=== PATIENT | male | born 1985 ===

== ENCOUNTER 2020-07-24 21:12 | Emergency (ER) | payer OTHER, SELFPAY ==
[2020-07-24 21:28] VITALS: BP 131/89; PULSE 79; RESP 18; TEMP 35.8; O2SAT 98; BMI 20.9
[2020-07-25 00:40] VITALS: BP 140/97; PULSE 80; RESP 20; O2SAT 98
--- NOTE | 2020-07-25 00:41 | PC.NURSE ---
Pt is CAOx4, reporting redness/swelling/pain to the outside of right nostril. Pt states that it started 1 month ago, pt denies injury/trauma. Pt explains that he went to Urgent Care last week, was prescribed 2 ABX and a topical cream for 1 week. Pt states that it has been 5 days. Pt reports some relief but remains concerned due to pain/swelling. VSS. Awaiting primary MD dagoberto. Continue to monitor.
--- NOTE | 2020-07-25 00:55 | ED.SKABFB ---
HPI - Skin/Abscess/Foreign Bdy General Chief complaint: Skin/Abscess/Foreign Body Stated complaint: nose abscess Source: patient Mode of arrival: ambulatory Limitations: no limitations History of Present Illness HPI narrative: 34-year-old male no significant past history presents with swelling to the right-sided nose. He was treated by urgent care on 07/18 with mupirocin topical ointment, Bactrim DS and Keflex. He has been taking these medications with poor effect, and feels that the swelling and tenderness is getting worse. He feels like the pain is now moving into his sinuses and of his nose. He does not report any fevers, chills, diaphoresis, nausea, vomiting, chest pain or pressure, palpitations, dizziness, lightheadedness, abdominal pain, abdominal distention, dysuria, hematuria, or any other concerning symptoms. Does not notice any did drainage from the site, he has been applying warm compresses and [id number] pain management. MD complaint: abscess/boil Onset (ago): week(s) (2) Tetanus up to date: yes Location: face Severity: moderate Severity scale (1-10): 6 Quality: burning and aching Pain Consistency: constant Exacerbating factors: palpation Context: recent antibiotic Associated symptoms: denies other symptoms Treatments prior to arrival: attempted to drain pus at home and antibiotic Related Data Previous Rx's Medication Instructions Recorded clindamycin HCl 150 mg PO Q8H 7 Days #21 cap 07/25/20 clindamycin HCl 300 mg PO Q8H 7 Days #21 cap 07/25/20 doxycycline monohydrate 100 mg PO BID 10 Days #20 tab 07/25/20 Allergies Allergy/AdvReac Type Severity Reaction Status Date / Time No Known Allergies Allergy Verified 07/24/20 21:27 Review of Systems Review of Systems: Constitutional: No Fever, No Chills ENT/Mouth: Swelling to the right [place], No Ear Pain, No Hoarseness, No sore throat Eyes: No Eye Pain, No Swelling, No Redness, No Foreign Body Cardiovascular: No Chest Pain, No SOB Respiratory: No Cough, No Dyspnea Gastrointestinal: No Nausea, No Vomiting, No Diarrhea, No abdominal Pain Genitourinary: No Dysuria, No Hematuria Musculoskeletal: No joint pain, No Myalgias, No Joint Swelling Skin: Positive redness and tenderness of the right [place], No Skin lacerations, No rash Neuro: No Weakness, No Numbness, No Paresthesias, No Loss of Consciousness, No Dizziness, No Headache Psych: No Anxiety/Panic, No Depression Heme/Lymph: no easy bruising, no Lymphadenopathy Endocrine: No Polyuria, No Polydipsia Yes all other systems are reviewed and are negative [facility] Past Medical History Attestation statement: The following information was validated with the patient. Source: old records reviewed Medical History (Updated 07/25/20 @ 02:42 by Shama Riley NP) No known health problems Social History Social History Advance Directives: No Physical Exam Vital Signs: Vital Signs: Last Vital Signs Temp 96.4 F L 07/24/20 21:28 Pulse 80 07/25/20 00:40 Resp 20 07/25/20 00:40 BP 140/97 H 07/25/20 00:40 Pulse Ox 98 07/25/20 00:40 Body Mass Index 20.9 Appearance: Alert. Oriented X3. No acute distress. Eyes: Pupils equal, round and reactive to light. ENT: Pharynx normal. no septal hematoma, bilateral nares patent Neck: Normal inspection. Neck supple. CVS: Normal heart rate and rhythm. Pulses normal. Respiratory: No respiratory distress. Breath sounds normal. Abdomen: Soft and nontender. Skin: Erythema and tenderness to the right naris, Skin warm and dry. Normal skin color. Normal skin turgor. Extremities: No lower extremity edema. Neuro: No motor deficit. No sensory deficit. Skin: Other: Course Course Course Narrative: 34-year-old male presents with worsening area of cellulitis or abscess on the right naris. He has been on topical antibiotic ointment as well as p.o. Bactrim DS and Keflex. Plan of care is for CBC, Chem 7, and CT scan of facial bones with contrast to rule abscess or facial bone involvement. Patient is afebrile, white count is normal. CT scan is negative for facial bone involvement or abscess. There is nothing drainable at this time, will give IV clindamycin and discharged home doxycycline and clindamycin p.o.. Patient was advised to return in 3 days for wound check. Patient verbalized understanding of and agrees to plan of care to discharge home. MDM - Skin/Abscess/Foreign Bdy Differential Diagnosis Differential diagnosis: Likely abscess of skin or subcutaneous tissue and cellulitis Medical Records Attestation: I reviewed the patient's medical records. Lab Data Attestation: I reviewed the patient's lab results. Result diagrams: 07/25/20 01:04 07/25/20 01:04 Labs: Lab Results 07/25/20 07/25/20 Range/Units 01:04 01:04 WBC 8.0 (4.8-10.8) X10*3/uL RBC 4.81 (4.60-5.80) X10*6/uL Hgb 14.2 (14.0-18.0) g/dl Hct 40.9 L (42-52) % MCV 85.0 (80-98) fL MCH 29.5 (27.0-33.0) pg MCHC 34.7 (31.0-36.0) g/dl RDW 11.9 (11.0-16.0) % Plt Count 323 (160-400) X10*3/uL MPV 8.8 L (9.4-12.4) fL Immature Gran % (Auto) 0.3 (0.0-0.4) % Neut % (Auto) 38.7 L (45-73) % Lymph % (Auto) 47.2 H (20-40) % [place] % (Auto) 10.1 (2-11) % Eos % (Auto) 3.1 (0-4) % Baso % (Auto) 0.6 (0-2) % Lymph # (Auto) 3.8 (1.2-4.9) X10*3/uL [place] # (Auto) 0.8 (0.1-1.2) X10*3/uL Eos # (Auto) 0.3 (0.0-0.4) X10*3/uL Baso # (Auto) 0.1 (0.0-0.2) X10*3/uL Abs Immat Gran (auto) 0.02 (0.00-0.03) X10*3/uL Absolute Neuts (auto) 3.1 (2.0-8.3) X10*3/uL Absolute Nucleated RBC 0.000 (0.0-0.012) X10*3/uL Nucleated RBC % (auto) 0.0 (0.0-0.2) /100WBC Sodium 138 (135-145) mmol/L Potassium 4.6 (3.3-5.1) mmol/L Chloride 103 (96-108) mmol/L Carbon Dioxide 25 (22-29) mmol/L Anion Gap 15 (12-20) BUN 19 H (9-16) mg/dL Creatinine 0.99 (0.5-1.4) mg/dL Estim Creat Clear Calc 102.5 Estimated GFR > 60 Random Glucose 104 (60-115) mg/dL Calcium 9.3 (8.4-10.2) mg/dL Imaging Data CT scan of facial bones with contrast: Attestation: I personally reviewed and interpreted this imaging study as follows: Radiologist's impression: EXAMINATION: CT FACIAL BONES WITH CONTRAST CLINICAL INFORMATION: Right nasal abscess. COMPARISON: None TECHNIQUE: Contiguous helical images of the facial bones were obtained following the administration of IV contrast. 85 mL of Omnipaque 350 were administered without incident. This CT examination was performed using dose optimization techniques as appropriate, variously including the following: *Automated exposure control *Adjustment of mA and/or kV according to patient size (this includes techniques or standardized protocols for targeted exams where dose is matched to indication/reason for exam; i.e. extremities or head) *Use of iterative reconstruction technique DLP: 288 mGy-cm FINDINGS: There is no acute maxillofacial fracture. The pterygoid plates are intact. The zygomatic arches are intact. The lamina papyracea are intact. The orbital rims are intact. The paranasal sinuses are well-aerated. No air-fluid levels are seen. There is skin thickening to the skin about the right nares. There are no drainable fluid collections. The ostiomeatal complexes are clear. The lamina papyracea are intact. The ethmoid roofs are symmetric. The carotid canals are normally covered by bone. No maxillary periapical disease is seen. The mastoid air cells and visualized middle ear cavities are well-aerated. The orbits are normal. The TMJs are unremarkable. The imaged portions of the brain demonstrate no acute abnormality. CT/CT facial bones w con IMPRESSION: Skin thickening about the right nares without demonstrable drainable fluid collections. No acute intracranial process or discrete facial bone fracture. Discharge Plan Discharge Clinical Impression: Cellulitis Qualifiers: Site of cellulitis: face Qualified Code(s): L03.211 - Cellulitis of face Patient Disposition: Home, Self-Care Instructions: Cellulitis (ED) Additional Instructions: You were evaluated for cellulitis on the left nostril. CT scan with contrast does not show bone involvement or a drainable abscess. We are starting you on 2 different antibiotics. Please stop taking Bactrim and Keflex. Take doxycycline and clindamycin as directed. Finish the entire course of these medications. Please return in 3 days for wound check. If you develop fevers, chills, or any other concerning symptoms please return to the emergency department immediately as this may indicate a serious blood infection. Thank you for choosing this emergency department for evaluation. Please follow-up with primary care physician as needed. Return to the emergency department for any new, concerning, or worsening symptoms. Prescriptions: New clindamycin HCl 300 mg capsule 300 mg PO Q8H 7 Days Qty: 21 RF: 0 clindamycin HCl 150 mg capsule 150 mg PO Q8H 7 Days Qty: 21 RF: 0 doxycycline monohydrate 100 mg tablet 100 mg PO BID 10 Days Qty: 20 RF: 0
--- NOTE | 2020-07-25 01:04 | PC.NURSE ---
IV established, labs obtained. Pt aware of plan for CT. Awaiting CT. Call peterson within reach, continue to monitor.
[2020-07-25 01:22] LABS: Basophils Absolute Auto 0.1 X10*3/uL (0.0-0.2); Basophils Percent Auto 0.6 % (0-2); Eosinophils Absolute Auto 0.3 X10*3/uL (0.0-0.4); Eosinophils Percent Auto 3.1 % (0-4); Hematocrit 40.9 % (42-52); Hemoglobin 14.2 g/dl (14.0-18.0); Imm Gran Abs Auto 0.02 X10*3/uL (0.00-0.03); Imm Gran Pct Auto 0.3 % (0.0-0.4); Lymphocytes Absolute Auto 3.8 X10*3/uL (1.2-4.9); Lymphocytes Percent Auto 47.2 % (20-40); MANUAL DIFF FLAG NO; Mean Corpuscular HGB Conc 34.7 g/dl (31.0-36.0); Mean Corpuscular Hemoglobin 29.5 pg (27.0-33.0); Mean Platelet Volume 8.8 fL (9.4-12.4); Monocytes Absolute Auto 0.8 X10*3/uL (0.1-1.2); Monocytes Percent Auto 10.1 % (2-11); Neutrophils Absolute Auto 3.1 X10*3/uL (2.0-8.3); Neutrophils Percent Auto 38.7 % (45-73); Platelet Count 323 X10*3/uL (160-400); Red Blood Count 4.81 X10*6/uL (4.60-5.80); Red Cell Distribution Width 11.9 % (11.0-16.0)
[2020-07-25 01:50] LABS: Anion Gap 15 (12-20); Blood Urea Nitrogen 19 mg/dL (9-16); Calcium 9.3 mg/dL (8.4-10.2); Carbon Dioxide 25 mmol/L (22-29); Chloride 103 mmol/L (96-108); Creatinine Clr Calc Pharmacy 102.5; Estimated Glomerular Filt Rate > 60; Glucose Random 104 mg/dL (60-115); Potassium 4.6 mmol/L (3.3-5.1); Sodium 138 mmol/L (135-145)
--- NOTE | 2020-07-25 02:03 | PC.NURSE ---
Ambulating to [place] with a [place]/steady gait.
--- NOTE | 2020-07-25 02:07 | PC.NURSE ---
Pt returns from CT without incident.
[2020-07-25] MEDS: iohexoL 350 MG/ML 100 ML INFUS..BTL 85 ML IV (02:22)
[2020-07-25] MEDS: Clindamycin Phosphate/D5W 300 MG/50 ML PIGGYBACK 100 MG IV (02:57)
[2020-07-25 03:03] VITALS: BP 121/82; PULSE 75; RESP 16
--- NOTE | 2020-07-25 03:04 | PC.NURSE ---
Medicated per MAR. VSS.
== END 2020-07-25 03:41 | disposition home or self-care (01) ==
PROVIDERS: Nurse Practitioner Family; Emergency Provider Emergency Medicine
DX: L03.211 Cellulitis of face (principal); J34.89 Other specified disorders of nose and nasal sinuses; Z79.899 Other long term (current) drug therapy
CPT/HCPCS: 36415; 70487; 80048; 85025; 96365; 99284; Q9967

== ENCOUNTER 2020-07-28 20:35 | Emergency (ER) | payer OTHER, SELFPAY ==
[2020-07-28 22:26] VITALS: BP 139/70; PULSE 81; RESP 22; TEMP 37.2; O2SAT 100; BMI 23.8
--- NOTE | 2020-07-28 22:33 | ED_ITS ---
HPI - Skin/Abscess/Foreign Bdy General Chief complaint: General Medical Stated complaint: MULTIPLE COMPLAINTS Time Seen by Provider: 07/28/20 22:15 Source: patient Mode of arrival: ambulatory Limitations: no limitations History of Present Illness HPI narrative: 34-year-old male came in with right nostril skin abscess/infection, started about month ago when patient was using a dirty face mask, started with pain and small pimple to the right side of the right nostril, then started to get more tender and bigger and more redness to the right skin nostril, patient was started on 2 courses of 2 different antibiotic 1st course with Bactrim and Keflex, his 2nd course was doxycycline and clindamycin (patient is still taking it) patient had a facial CT on 07/25/2020 which showed the following:Skin thickening about the right nares without demonstrable drainable fluid collections. No acute intracranial process or discrete facial bone fracture. Patient came in because the 2nd course of 2 antibiotic not given him good relief of his symptoms. Related Data Allergies Allergy/AdvReac Type Severity Reaction Status Date / Time No Known Allergies Allergy Unverified 03/07/20 17:08 Review of Systems Review of Systems: All other systems are reviewed and are negative Constitutional: Reports as per HPI and Reports no additional constitutional complaints Eyes: Reports as per HPI and Reports no additional eye complaints Reports system reviewed and no additional complaints, except as documented Cardiovascular: Reports as per HPI and Reports no additional cardiovascular complaints Respiratory: Reports as per HPI and Reports no additional respiratory complaints Gastrointestinal: Reports as per HPI and Reports no additional gastrointestinal complaints Genitourinary: Reports no additional female genitourinary complaints Musculoskeletal: Reports no additional musculoskeletal complaints Skin/Breast: Reports system reviewed and no additional complaints, except as docu Psychiatric: Reports no additional psychiatric complaints Endocrine: Reports no additional endocrine complaints Hematologic/Lymphatic: Reports no additional hematologic/lymphatic complaints Allergic/Immunologic: Reports no additional allergic/immunologic complaints Reports system reviewed and no additional complaints, except as documented and Reports Abnormal speech present [facility] Past Medical History Medical History Patient denies significant medical history Social History Social History Alcohol intake: never Smoking Status: Never smoker Use of substances other than those prescribed or required for medical reasons: No Advance Directives: No Physical Exam Vital Signs: Vital Signs: Last Vital Signs Temp 98.9 F 07/28/20 22:26 Pulse 81 07/28/20 22:26 Resp 22 H 07/28/20 22:26 BP 139/70 07/28/20 22:26 Pulse Ox 100 07/28/20 22:26 Body Mass Index 23.8 Vital signs have been reviewed as normal and appeared to be correct. Blood pressure normal. Heart rate normal. Respiration rate normal. Temperature normal. Oxygen saturation normal. Appearance: Alert. Oriented X3. No acute distress. Head: Normal external exam. Normocephalic. Atraumatic. No Torres signs noted. No raccoon eyes noted Eyes: EOMI. Conjunctiva and sclera normal. Eyelids normal. ENT: TM's Normal. Pharynx normal. Uvula midline. Moist mucous membranes. No trismus noted. No drooling noted. No muffled voice noted. 1 x 1 cm area of redness, hotness, swelling, tender to touch patient is not letting full examination hard to tell if it is fluctuant, at the left nostril Neck: Normal inspection. Neck supple. FROM. No adenopathy. Thyroid Normal. No meningeal signs. No neck mass noted. CVS: Normal heart rate and rhythm. Heart sound normal. No murmurs noted. Pulses normal throughout. Respiratory: No respiratory distress. Painless inspiration. Breath sounds normal. No wheezes/rales/rhonchi noted. Chest nontender. No accessory muscle usage noted or decreased air movement noted. Abdomen: Soft and nontender. Bowel sounds normal in all 4 quadrants. No distention noted. No organomegaly noted. No visible injury noted. Back: No CVA tenderness. Full range of motion noted. Skin: Skin warm and dry. Normal skin color. Normal skin turgor. No rashes/lesions/lacerations noted. Extremities: No lower extremity edema. Extremities exhibit normal range of motion. Extremities nontender. Neuro: Oriented X 3. No motor deficit. No sensory deficit. Reflexes normal. Course Course Course Narrative: Assessment and plan. 34-year-old male for months is been having redness tenderness and swelling of right nostril not responding to antibiotic, status post I and D drainage is consistent with infected sebaceous cyst. Will discharge to finish the current course of antibiotic. And follow-up with a surgeon.. Procedures Abscess I/D Site: other (Left nostril) Local Anesthetic: lidocaine 2% Amount of anesthesia used (mL): 5 Technique: incised with blade (Size 11 blade scalpel made have cm incision, copious amount of cheesy drainage was squeezed out.) Sent for culture/gram staining?: No Irrigation: No Packing used?: none Complications: pain Discharge Plan Discharge Clinical Impression: Sebaceous cyst Patient Disposition: Home, Self-Care Instructions: Cyst (ED) Additional Instructions: Apply ice to the area. Finish the whole course of the current antibiotic. Referrals: Physician,None [Primary Care Provider] - 2 days Lsaha Ramírez MD [Physician] - 2 days
[2020-07-28] MEDS: Lidocaine 4 % Cream KIT 1 APPL TOPICAL (22:36)
[2020-07-28] MEDS: Lidocaine HCl 2 % MPF 5 ML VIAL SUBCUT (23:01)
[2020-07-29] VITALS: PULSE 84; RESP 18
[2020-07-29] MEDS: oxyCODONE HCl Immed Release 5 MG TABLET PO (00:53)
--- NOTE | 2020-07-29 01:47 | PC.NURSE ---
dressing applied to right side of nose no bleeding or drainage at this time. site tender to touch
== END 2020-07-29 02:01 | disposition home or self-care (01) ==
PROVIDERS: Emergency Provider Emergency Medicine
DX: L72.3 Sebaceous cyst (principal)
CPT/HCPCS: 10060; 99284

== ENCOUNTER → 2020-08-06 14:17 | Outpatient (BNVA) | payer OTHER, SELFPAY | PROVIDERS: PCP Internal Medicine; Visit Provider Surgery | DX: J34.0 Abscess, furuncle and carbuncle of nose (principal) | CPT/HCPCS: 99202 ==

== ENCOUNTER 2021-03-20 09:19 | Emergency (ER) | payer OTHER, SELFPAY ==
--- NOTE | ~2021-03-20 | XR_ITS ---
EXAMINATION: XR HAND, RIGHT CLINICAL INFORMATION: Laceration. Rule out foreign body. COMPARISON: None TECHNIQUE: PA, lateral, and oblique views of the right hand. FINDINGS: Bone alignment is normal. No fracture or dislocation is seen. The joint spaces are normal. Soft tissues are normal. No soft tissue foreign body seen. XR/XR hand RT 2V IMPRESSION: No soft tissue foreign body seen.
[2021-03-20 10:07] VITALS: BP 122/81; PULSE 90; RESP 6; TEMP 36.8; O2SAT 100; BMI 20.3
--- NOTE | 2021-03-20 10:19 | ED.WOUNDLAC ---
HPI - Wound/Laceration General Chief Complaint: Wound/Laceration Stated Complaint: laceration rt hand Time Seen by Provider: 03/20/21 10:03 Source: patient Mode of arrival: ambulatory Limitations: no limitations History of Present Illness HPI narrative: 35-year-old male here with complaints of laceration to the right hand. Patient tells me he was taking out the trash in a piece of glass punctured his right hand. There was some bleeding on site which is controlled now. Tetanus status unknown Related Data Previous Rx's Medication Instructions Recorded clindamycin HCl 150 mg capsule 150 mg PO Q8H 7 Days #21 cap 07/25/20 clindamycin HCl 300 mg capsule 300 mg PO Q8H 7 Days #21 cap 07/25/20 doxycycline monohydrate 100 mg 100 mg PO BID 10 Days #20 tab 07/25/20 tablet Allergies Allergy/AdvReac Type Severity Reaction Status Date / Time No Known Allergies Allergy Verified 08/06/20 14:26 Review of Systems Review of Systems: Yes all other systems are reviewed and are negative Constitutional: Constitutional: Reports no additional constitutional complaints, Denies body ache(s), Denies chills, Denies fever(s), Denies headache(s) and Denies weakness Eyes: Eyes: Reports no additional eye complaints and Denies change in vision ENT: Reports system reviewed and no additional complaints, except as documented, Denies dizziness, Denies headache(s), Denies nasal congestion, Denies nasal discharge and Denies neck pain Cardiovascular: Cardiovascular: Reports no additional cardiovascular complaints, Denies chest pain, Denies leg edema and Denies dyspnea Respiratory: Respiratory: Reports no additional respiratory complaints, Denies cough and Denies dyspnea Gastrointestinal: Gastrointestinal: Reports no additional gastrointestinal complaints, Denies abdominal pain, Denies diarrhea, Denies nausea and Denies vomiting Genitourinary: Genitourinary: Denies urinary incontinence Musculoskeletal: Musculoskeletal: Reports no additional musculoskeletal complaints, Denies back pain, Denies arthralgias, Denies joint swelling, Denies neck pain, Denies numbness and Denies tingling Integumentary/Breasts: Skin/Breast: Reports system reviewed and no additional complaints, except as docu and Denies rash Comments: Laceration Neurologic: Reports system reviewed and no additional complaints, except as documented, Denies Abnormal speech present, Denies dizziness, Denies headache(s), Denies numbness, Denies tingling and Denies weakness PMFSH Past Medical History Attestation statement: The following information was validated with the patient. Source: old records reviewed and nursing notes reviewed Medical History Abscess of nose No known health problems Patient denies significant medical history Social History Social History Alcohol intake: current Advance Directives: No Advance Directives Information Provided: No Physical Exam Vital Signs: Vital Signs: Last Vital Signs Temp 98.2 F 03/20/21 10:07 Pulse 90 03/20/21 10:07 Resp 6 L 03/20/21 10:07 BP 122/81 03/20/21 10:07 Pulse Ox 100 03/20/21 10:07 Body Mass Index 20.3 Const: General: cooperative, healthy appearing, comfortable and no acute distress Orientation/consciousness: patient oriented x3 Limitations: no limitations HENMT: Head: Yes normal to inspection Ears: hearing grossly normal bilaterally General nose exam: Normal external nose present Face and sinus: Yes normal facial exam Mouth: Normal oral and palatal mucosa present Throat: Yes posterior oropharynx normal Eyes: General: appearance normal, both eyes and all related structures Pupils: Equal, round and reactive pupils present Neck: Neck: Yes normal visual inspection Chest: Chest palpation & inspection: normal inspection of the chest Resp: Effort & Inspection: normal respiratory effort Auscultation: clear to auscultation bilaterally Cardio: Rate: regular rate Rhythm: regular rhythm Peripheral pulses: Peripheral pulses 2+ throughout GI: Inspection: Yes normal to inspection Palpation (GI): Soft to palpation and nontender Auscultation: normal bowel sounds Back/Spine/Pelvis: Thoracic/Lumbar Spine: thoracic and lumbar spine normal to inspection Skin: General skin exam: no rashes or lesions noted Neuro: General: patient oriented x3, no focal motor deficits and normal sensation to monofilament Cranial nerves: Yes Equal, round and reactive pupils present Cognition (Neuro): normal cognition Speech: No Abnormal speech present Gait exam (Neuro): Normal gait present Motor exam (neuro): 5/5 motor strength present throughout Extrem: Other: Over the right thenar there is a 1 centimetres superficial laceration. Bleeding is controlled. Able to extend and flex the thumb with no difficulty. There is some pain but patient is able. General: Yes normal to inspection Course Course Course Narrative: Superficial laceration to the right thumb. Will check x-ray to rule out foreign body and update tetanus status 1100-flexor and extensor tendon intact. The wound was cleaned with normal saline and Betadine solution. Steri-Strips were applied with a nonstick and a wrap. X-ray shows no foreign body. Reviewed worrisome signs and symptoms of when to return to the emergency department. Comfortable discharge home. MDM - Wound/Laceration Medical Records Attestation: I reviewed the patient's medical records. Lab Data Attestation: I reviewed the patient's lab results. Imaging Data hand xray: Attestation: I personally reviewed and interpreted this imaging study as follows: Radiologist's impression: EXAMINATION: XR HAND, RIGHT CLINICAL INFORMATION: Laceration. Rule out foreign body.? COMPARISON: None? TECHNIQUE: PA, lateral, and oblique views of the right hand. FINDINGS: Bone alignment is normal. No fracture or dislocation is seen. The joint spaces are normal. Soft tissues are normal. No soft tissue foreign body seen.? XR/XR hand RT 2V IMPRESSION: No soft tissue foreign body seen. Discharge Plan Discharge Clinical Impression: Laceration Patient Disposition: Home, Self-Care Instructions: Laceration (ED) Additional Instructions: Remove the outer dressing in 24 hrs. Keep the steri strips in place for 3 days then remove. After this apply a triple antibiotic ointment Return for fever, drainage, odor Prescriptions: No Action clindamycin HCl 300 mg capsule 300 mg PO Q8H 7 Days Qty: 21 RF: 0 clindamycin HCl 150 mg capsule 150 mg PO Q8H 7 Days Qty: 21 RF: 0 doxycycline monohydrate 100 mg tablet 100 mg PO BID 10 Days Qty: 20 RF: 0 Referrals: Physician,None [Primary Care Provider] - 2 days Interventions: ED Discharge Assessment Last Done: 03/20/21 11:02 Discharge Date/Time: 03/20/21 11:03
[2021-03-20] MEDS: Diphth,Pertus(ACell),Tet Adult 0.5 ML SYRINGE IM (10:52)
== END 2021-03-20 11:03 | disposition home or self-care (01) ==
PROVIDERS: Emergency Provider Emergency Medicine Emergency Medical Services
DX: S61.411A Laceration without foreign body of right hand, initial encounter (principal); M79.641 Pain in right hand; W25.XXXA Contact with sharp glass, initial encounter; Y93.9 Activity, unspecified; Y92.007 Garden or yard of unspecified non-institutional (private) residence as the place of occurrence of the external cause; Y99.9 Unspecified external cause status; Z79.899 Other long term (current) drug therapy
CPT/HCPCS: 73120; 90471; 90715; 99283; 99284

== ENCOUNTER 2021-07-28 14:07 | Emergency (ER) | payer OTHER, SELFPAY ==
[2021-07-28 14:32] VITALS: BP 128/74; PULSE 85; RESP 16; TEMP 36.9; O2SAT 100; BMI 20.3
--- NOTE | 2021-07-28 15:37 | ED_ITS ---
HPI - Back Pain/Injury General Chief Complaint: Back Pain/Injury Stated Complaint: back pain - work injury Time Seen by Provider: 07/28/21 15:27 Source: patient Mode of arrival: ambulatory Limitations: no limitations History of Present Illness HPI Narrative: 35-year-old male presents to the ED for low back pain on movement. Patient states a couple days ago he was lifting heavy objects from his truck. 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 Patient denies any blunt trauma to the back, fall ground, abdominal pain, nausea, vomiting, dysuria, hematuria, flank pain, fever, or chills. Patient denies any urinary/bowel incontinence. Related Data Previous Rx's Medication Instructions Recorded clindamycin HCl 150 mg capsule 150 mg PO Q8H 7 Days #21 cap 07/25/20 clindamycin HCl 300 mg capsule 300 mg PO Q8H 7 Days #21 cap 07/25/20 doxycycline monohydrate 100 mg 100 mg PO BID 10 Days #20 tab 07/25/20 tablet cyclobenzaprine 10 mg tablet 10 mg PO TID PRN #21 tab 07/28/21 naproxen 500 mg tablet 500 mg PO BID PRN 10 Days #20 tab 07/28/21 prednisone 20 mg tablet 60 mg PO DAILY 5 Days #15 tab 07/28/21 Allergies Allergy/AdvReac Type Severity Reaction Status Date / Time No Known Allergies Allergy Verified 07/28/21 14:31 Review of Systems Review of Systems: Back pain Yes all other systems are reviewed and are negative PMFSH Past Medical History Medical History Abscess of nose No known health problems Patient denies significant medical history Social History Social History Alcohol intake: current Advance Directives: No Advance Directives Information Provided: Yes Physical Exam Vital Signs: Vital Signs: Last Vital Signs Temp 98.5 F 07/28/21 14:32 Pulse 85 07/28/21 14:32 Resp 16 07/28/21 14:32 BP 128/74 07/28/21 14:32 Pulse Ox 100 07/28/21 14:32 BMI result Body Mass Index 20.3 Const: General: cooperative, healthy appearing, comfortable, no acute distress, well developed, alert, awake and Physically active Orientation/consciousness: patient oriented x3 HENMT: Head: Yes normal to inspection, Yes No palpable skull fracture present, Yes normocephalic, Yes atraumatic and No abrasion Eyes: General: appearance normal, both eyes and all related structures Neck: Neck: Yes normal visual inspection, Yes full ROM, Yes no lymphadenopathy, Yes no meningeal signs, Yes trachea midline, Yes supple, No anterior neck swelling and No tender Chest: Chest palpation & inspection: normal inspection of the chest and normal palpation of entire chest wall Resp: Effort & Inspection: normal respiratory effort and able to speak in complete sentences Auscultation: clear to auscultation bilaterally Cardio: Jugular venous distension: no JVD Heart sounds: S1 normal heart sound present and S2 normal heart sound present GI: Inspection: Yes normal to inspection and No abdominal wall ecchymosis Palpation (GI): Soft to palpation, not firm, nontender, no guarding and not rigid : General: No CVA tenderness and Yes no CVA tenderness Back/Spine/Pelvis: Other: Back pain on range of motion. Back: no CVA tenderness, No CVA tenderness and back tenderness (Right paraspinous is tenderness. negative for spine tenderness on palpation) Skin: General skin exam: no rashes or lesions noted and elasticity normal Neuro: General: patient oriented x3, gait normal, no meningeal signs and CN's II-XI intact bilaterally Cranial nerves: Yes CN's II-XII intact bilaterally Extrem: General: Yes normal to inspection and Yes full ROM Psych: Appearance: grossly normal, well kempt and not disheveled Course Course Course Narrative: Back pain Reevaluation(s) Reevaluation #1: Patient refused imaging. Symptoms most likely muscular. Patient informed his symptoms worsen she will follow up with primary care provider for imaging of the spine. Not Suspecting kidney stones, cauda equina, or epidural abscess. Patient will be discharged with pain meds and muscle relaxers Time: 15:44 MDM - Back Pain/Injury MDM Narrative Medical decision making narrative: Muscular back pain. Back strain Discharge Plan Discharge Clinical Impression: Strain of lumbar region Patient Disposition: Home, Self-Care Instructions: Low Back Strain (ED), Acute Low Back Pain (ED) Additional Instructions: Return to the ED immediately for any worsening back pain, paralysis/tingling/numbness of lower extremity, inability to walk, flank pain, fever, chills, nausea, vomiting, hematuria, abdominal pain, or any other concerning symptoms. Prescriptions: New naproxen 500 mg tablet 500 mg PO BID PRN (Reason: pain) 10 Days Qty: 20 0RF prednisone 20 mg tablet 60 mg PO DAILY 5 Days Qty: 15 0RF cyclobenzaprine 10 mg tablet 10 mg PO TID PRN (Reason: muscle spasm) Qty: 21 0RF Rx Instructions: Side effect of drowsiness. Do Not take at work or while driving. No Action clindamycin HCl 300 mg capsule 300 mg PO Q8H 7 Days Qty: 21 0RF Rx Instructions: Clindamycin 450 mg p.o. q.8 hours for 7 days clindamycin HCl 150 mg capsule 150 mg PO Q8H 7 Days Qty: 21 0RF Rx Instructions: Clindamycin 450 mg p.o. 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
== END 2021-07-28 16:15 | disposition home or self-care (01) ==
LOC: HO.ED 15:57
PROVIDERS: Emergency Provider Emergency Medicine; PCP Internal Medicine
DX: S39.012A Strain of muscle, fascia and tendon of lower back, initial encounter (principal); X50.0XXA Overexertion from strenuous movement or load, initial encounter; Y93.89 Activity, other specified; Y92.812 Truck as the place of occurrence of the external cause; Y99.0 Civilian activity done for income or pay
CPT/HCPCS: 99283

== ENCOUNTER 2022-11-05 09:23 | Emergency (ER) | payer OTHER, SELFPAY ==
[2022-11-05 09:27] VITALS: PULSE 82; RESP 18; TEMP 36.9; O2SAT 99; BMI 32.0
--- NOTE | 2022-11-05 10:17 | ED.GENADULT ---
HPI - General Adult General Chief complaint: Eye Problems Stated complaint: fb in eyes work related Time Seen by Provider: 11/05/22 09:55 Related Data Previous Rx's Medication Instructions Recorded clindamycin HCl 150 mg capsule 150 mg PO Q8H 7 days #21 caps 07/25/20 clindamycin HCl 300 mg capsule 300 mg PO Q8H 7 days #21 caps 07/25/20 doxycycline monohydrate 100 mg 100 mg PO BID 10 days #20 tabs 07/25/20 tablet cyclobenzaprine 10 mg tablet 10 mg PO TID PRN muscle spasm #21 07/28/21 tabs naproxen 500 mg tablet 500 mg PO BID PRN pain 10 days #20 07/28/21 tabs prednisone 20 mg tablet 60 mg (3 x 20 mg) PO DAILY 5 days 07/28/21 #15 tabs erythromycin 5 mg/gram (0.5 %) eye 1 appl ophthalmic-Left TID 10 days 11/05/22 ointment #3.5 grams Allergies Allergy/AdvReac Type Severity Reaction Status Date / Time No Known Allergies Allergy Verified 07/28/21 14:31 Review of Systems Constitutional: Constitutional: Reports no additional constitutional complaints Eyes: Eyes: Reports blurry vision, Reports irritation and Reports eye pain ( Left eye) ENT: Reports system reviewed and no additional complaints, except as documented Cardiovascular: Cardiovascular: Reports no additional cardiovascular complaints Respiratory: Respiratory: Reports no additional respiratory complaints Gastrointestinal: Gastrointestinal: Reports no additional gastrointestinal complaints Genitourinary: Genitourinary: Reports no additional male genitourinary complaints Musculoskeletal: Musculoskeletal: Reports no additional musculoskeletal complaints Psychiatric: Psychiatric: Reports no additional psychiatric complaints [facility] Past Medical History Medical History Abscess of nose No known health problems Patient denies significant medical history Social History Social History Alcohol intake: current Advance Directives: No Advance Directives Information Provided: No Physical Exam ED Vital Signs: Vital Signs - 24 hr 11/05/22 09:27 Temperature 98.5 F Pulse Rate 82 Respiratory Rate 18 Pulse Oximetry 99 Oxygen Delivery Method Room Air BMI result Body Mass Index 32.0 Const General: cooperative, healthy appearing, well developed, alert and awake [facility] Head: Yes normal to inspection, Yes No palpable skull fracture present, Yes normocephalic and Yes atraumatic Ears: hearing grossly normal bilaterally, external ears normal and TM's normal bilaterally General nose exam: Normal external nose present Face and sinus: Yes normal facial exam Eyes Eyelids: Yes eyelid abnormality ( Left eyelid is swollen) Conjunctivae: conjunctival abnormal ( left conjunctiva red) Corneas: fluorescein used ( blood denies so the common to) Pupils: Equal, round and reactive pupils present Direct Ophthalmoscopy: normal light reflex Neuro Cranial nerves: Yes Equal, round and reactive pupils present Medications Administered Discontinued Medications Generic Name Dose Route Start Last Admin Trade Name Yolis PRN Reason Stop Dose Admin Erythromycin 1 cm 11/05/22 11:14 11/05/22 11:34 Erythromycin Base 0.5% Oph Oin 1 Gm Tube EYE-LEFT 11/05/22 11:15 1 cm ONCE ONE Administration Fluorescein Sodium 1 strip 11/05/22 10:23 11/05/22 11:13 Fluorescein Sodium Strip EYE-LEFT 11/05/22 10:24 1 strip ONCE ONE Administration Tetracaine HCl 1 drop 11/05/22 10:23 11/05/22 11:13 Tetracaine Hcl/Pf 0.5% Oph Demetra 4 Ml Drops EYE-LEFT 11/05/22 10:24 1 drop ONCE ONE Administration Medical Decision Making Medical Decision Making MDM Narrative: patient is here today for complaining left eye pain. 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 Patient has been like this for the last few days. 2 nights ago patient reports that he felt like he had something in his eye rubbed his eye and felt pain. Patient went to work yesterday, however he continued to have left eye pain and swelling. Patient went to [facility] last night during the night and was told that he will not be able to see for 9 hours or so. Patient is here today. Unable to keep his eye open. Left eyelid swelling and redness. Sensitive to light. Will put tetracaine eyedrops and Fluorescein strip used. Wood's lamp used and patient does have a 2 mm corneal abrasion. No foreign body seen. Patient will be discharged home to follow-up with his geriatric physician. First dose of erythromycin will be giving in the ER. Discharge Plan Discharge Clinical Impression: Corneal abrasion Patient Disposition: Home, Self-Care Instructions: Corneal Abrasion (ED), Photophobia (ED) Additional Instructions: you were seen here today after sustaining injury to your left eye. You do have a small corneal abrasion. No foreign body seen. Continue to use erythromycins ointment 3 times a day for the next [address] Velasquez's office tomorrow for follow-up appointment. Please make sure he will return to emergency department if you continue to have eye pain, discharge, increased swelling or redness , fever or chills. Make sure that you keep your eyes cean. Please do not rub your eyes Prescriptions: New erythromycin 5 mg/gram (0.5 %) ointment 1 appl ophthalmic-Left TID 10 Days Qty: 3.5 0RF No Action clindamycin HCl 300 mg capsule 300 mg PO Q8H 7 Days Qty: 21 0RF Rx Instructions: Clindamycin 450 mg p.o. q.8 hours for 7 days clindamycin HCl 150 mg capsule 150 mg PO Q8H 7 Days Qty: 21 0RF Rx Instructions: Clindamycin 450 mg p.o. q.8 hours for 7 days doxycycline monohydrate 100 mg tablet 100 mg PO BID 10 Days Qty: 20 0RF naproxen 500 mg tablet 500 mg PO BID PRN (Reason: pain) 10 Days Qty: 20 0RF prednisone 20 mg tablet 60 mg PO DAILY 5 Days Qty: 15 0RF cyclobenzaprine 10 mg tablet 10 mg PO TID PRN (Reason: muscle spasm) Qty: 21 0RF Rx Instructions: Side effect of drowsiness. Do Not take at work or while driving. Referrals: Praneeth Velasquez [Physician] - Stand Alone Forms: Work/School Release Interventions: ED Discharge Assessment Last Done: 11/05/22 11:39 Discharge Date/Time: 11/05/22 11:41
[2022-11-05] MEDS: Fluorescein Sodium STRIP 1 STRIP EYE-LEFT (11:13)
[2022-11-05] MEDS: Tetracaine HCl/PF 0.5% Oph Sol 4 ML DROPS 1 DROP EYE-LEFT (11:13)
--- NOTE | 2022-11-05 11:14 | MHC.EDTECH ---
Patient did visual test unable to do Left eye, due to not be able to open . Right eye was 20/25
[2022-11-05] MEDS: Erythromycin Base 0.5% Oph Oin 1 GM TUBE 1 CM EYE-LEFT (11:34)
== END 2022-11-05 11:41 | disposition home or self-care (01) ==
PROVIDERS: Emergency Provider Student in an Organized Health Care Education/Training Program
DX: S05.02XA Injury of conjunctiva and corneal abrasion without foreign body, left eye, initial encounter (principal); X58.XXXA Exposure to other specified factors, initial encounter; H57.12 Ocular pain, left eye; Y93.9 Activity, unspecified; Y92.9 Unspecified place or not applicable; Y99.9 Unspecified external cause status
CPT/HCPCS: 99282; 99283

== ENCOUNTER 2022-11-14 12:17 | Emergency (ER) | payer OTHER, SELFPAY ==
[2022-11-14 12:35] VITALS: PULSE 66; RESP 18; TEMP 36.6; O2SAT 98; BMI 26.5
--- NOTE | 2022-11-14 12:48 | ED_ITS ---
HPI - Medical Clearance General Chief complaint: Medical Clearance Stated complaint: medical clearance Time Seen by Provider: 11/14/22 12:51 Source: patient Mode of arrival: ambulatory Limitations: no limitations History of Present Illness HPI Narrative: Patient is a 37 year old assigned male at with no reported history presenting to the emergency department today requesting a note to go back to work. Patient states that he was recently seen here and needs a note saying he can go back to work tomorrow. Patient denies any dizziness, lightheadedness, abdominal pain, nausea, vomiting, fever, chills, blurry vision, double vision, loss of vision, chest pain, difficulty breathing, shortness of breath, back pain, night sweats, pain with urination, increased urinary frequency, increased urinary urgency, blood in his urine or stool, syncope or a near syncopal episode, recent trauma or falls, bowel incontinence, bladder incontinence, bowel retention, bladder retention, or any other complaints at this time. Associated Symptoms: denies other symptoms Treatments Prior to Arrival: none Related Information Previous Rx's Medication Instructions Recorded clindamycin HCl 150 mg capsule 150 mg PO Q8H 7 days #21 caps 07/25/20 clindamycin HCl 300 mg capsule 300 mg PO Q8H 7 days #21 caps 07/25/20 doxycycline monohydrate 100 mg 100 mg PO BID 10 days #20 tabs 07/25/20 tablet cyclobenzaprine 10 mg tablet 10 mg PO TID PRN muscle spasm #21 07/28/21 tabs naproxen 500 mg tablet 500 mg PO BID PRN pain 10 days #20 07/28/21 tabs prednisone 20 mg tablet 60 mg PO DAILY 5 days #15 tabs 07/28/21 erythromycin 5 mg/gram (0.5 %) eye 1 appl ophthalmic-Left TID 10 days 11/05/22 ointment #3.5 grams Allergies Allergy/AdvReac Type Severity Reaction Status Date / Time No Known Allergies Allergy Verified 07/28/21 14:31 Review of Systems Constitutional: Constitutional: Reports no additional constitutional complaints, Denies chills, Denies fever(s) and Denies night sweats Eyes: Eyes: Reports no additional eye complaints, Denies blurry vision, Denies change in vision, Denies diplopia, Denies eye discharge, Denies loss of vision and Denies eye pain ENT: Denies dizziness Cardiovascular: Cardiovascular: Reports no additional cardiovascular complaints, Denies chest pain, Denies lightheadedness, Denies Loss of Consciousness and Denies dyspnea Respiratory: Respiratory: Reports no additional respiratory complaints and Denies dyspnea Gastrointestinal: Gastrointestinal: Reports no additional gastrointestinal complaints, Denies abdominal pain, Denies melena, Denies hematochezia, Denies change in bowel habits and Denies change in stool character Genitourinary: Genitourinary: Reports no additional male genitourinary complaints, Denies hematuria, Denies oliguria, Denies difficulty urinating, Denies dysuria, Denies urinary frequency, Denies urinary hesitancy, Denies urinary incontinence and Denies urinary urgency Musculoskeletal: Musculoskeletal: Reports no additional musculoskeletal complaints, Denies numbness and Denies tingling Neurologic: Denies dizziness, Denies loss of vision, Denies numbness and Denies tingling Psychiatric: Psychiatric: Reports no additional psychiatric complaints Endocrine: Endocrine: Reports no additional endocrine complaints Hematologic/Lymphatic: Hematologic/Lymphatic: Reports no additional hematologic/lymphatic complaints Allergic/Immunologic: Allergic/Immunologic: Reports no additional allergic/immunologic complaints [facility] Past Medical History Attestation statement: The following information was validated with the patient. Source: old records reviewed and nursing notes reviewed Medical History Abscess of nose No known health problems Patient denies significant medical history Social History Social History Alcohol intake: current Advance Directives: No Advance Directives Information Provided: No Physical Exam Vital Signs: Vital Signs: Last Vital Signs Temp 97.8 F 11/14/22 12:35 Pulse 66 11/14/22 12:35 Resp 18 11/14/22 12:35 Pulse Ox 98 11/14/22 12:35 O2 Del Method Room Air 11/14/22 12:35 BMI result Body Mass Index 26.5 Const: General: cooperative, no acute distress, alert and awake Nutritional Appearance: well nourished Orientation/consciousness: patient oriented x3 Limitations: no limitations HEENT: Head: Yes normal to inspection and Yes atraumatic Ears: hearing grossly normal bilaterally and external ears normal General nose exam: Normal external nose present, no nasal discharge noted and no epistaxis Face and sinus: Yes normal facial exam, No abrasion and No laceration Mouth: Normal oral and palatal mucosa present, no drooling and no muffled voice Eyes: General: appearance normal, both eyes and all related structures Periorbital: periorbital findings normal Eyelids: Yes eyelids normal Conjunctivae: conjunctivae normal Pupils: Equal, round and reactive pupils pr esent EOM: EOMs intact bilaterally Neck: Neck: Yes normal visual inspection, Yes full ROM and Yes no lymphadenopathy Chest: Chest palpation & inspection: normal inspection of the chest Resp: Effort & Inspection: normal respiratory effort and able to speak in complete sentences Auscultation: clear to auscultation bilaterally Cardio: Rate: regular rate Rhythm: regular rhythm GI: Inspection: Yes normal to inspection Neuro: General: patient oriented x3 and moves all extremities Cranial nerves: Yes Equal, round and reactive pupils present Cognition (Neuro): normal cognition Motor exam (neuro): 5/5 motor strength present throughout Sensory Exam: Normal double simultaneous stimulation for sensation Coordination: [id number] test normal Extrem: General: Yes normal to inspection, Yes full ROM and Yes capillary refill normal Psych: Appearance: grossly normal Mental Status: mental status grossly normal Affect: normal affect Attitude: cooperative Thought process: Normal thought process present Thought content: Normal thought content present Insight: Good insight present (Psych) Medical Decision Making Medical Decision Making MDM Narrative: Patient is a 37 year old assigned male at with no reported medical history presenting to the emergency department today requesting a work note to go back to work tomorrow. Patient's physical exam was unremarkable. I explained my physical exam findings to the patient. I answered all questions asked by the patient. I stressed the importance of the patient taking his medication as prescribed. I stressed the importance of the patient following up with his primary care provider. I stressed the importance of the patient returning to the emergency department immediately if he were to develop any dizziness, shortness of breath, difficulty breathing, chest pain, blurry vision, loss of vision, nausea, vomiting, abdominal pain, fever, chills, back pain, or any other complaints. Patient verbalized agreement and understanding with this treatment plan and discharge. Differential Diagnosis Differential Diagnoses: The differential diagnosis associated with the presentation includes medical clearance Discharge Plan Discharge Clinical Impression: Normal exam Patient Disposition: Home, Self-Care Instructions: Normal Exam (ED) Additional Instructions: Follow up with your primary care provider. Return to the emergency department immediately if you develop any dizziness, shortness of breath, difficulty breathing, chest pain, blurry vision, loss of vision, nausea, vomiting, abdominal pain, fever, chills, back pain, or any other complaints. Prescriptions: No Action clindamycin HCl 300 mg capsule 300 mg PO Q8H 7 Days Qty: 21 0RF Rx Instructions: Clindamycin 450 mg p.o. q.8 hours for 7 days clindamycin HCl 150 mg capsule 150 mg PO Q8H 7 Days Qty: 21 0RF Rx Instructions: Clindamycin 450 mg p.o. q.8 hours for 7 days doxycycline monohydrate 100 mg tablet 100 mg PO BID 10 Days Qty: 20 0RF naproxen 500 mg tablet 500 mg PO BID PRN (Reason: pain) 10 Days Qty: 20 0RF prednisone 20 mg tablet 60 mg PO DAILY 5 Days Qty: 15 0RF cyclobenzaprine 10 mg tablet 10 mg PO TID PRN (Reason: muscle spasm) Qty: 21 0RF Rx Instructions: Side effect of drowsiness. Do Not take at work or while driving. erythromycin 5 mg/gram (0.5 %) ointment 1 appl ophthalmic-Left TID 10 Days Qty: 3.5 0RF Referrals: [facility] Family [facility] [Provider Group] (Call to establish and follow up with a primary care provider. If you already have a primary care provider, please follow up with them.) [facility] [Provider Group] (Call to establish and follow up with a primary care provider. If you already have a primary care provider, please follow up with them.) [facility] [Provider Group] (Call to establish and follow up with a primary care provider. If you already have a primary care provider, please follow up with them.) Stand Alone Forms: Work/School Release Interventions: ED Discharge Assessment Last Done: 11/14/22 12:57 Discharge Date/Time: 11/14/22 12:58 Print Language: Rwandan
== END 2022-11-14 12:58 | disposition home or self-care (01) ==
PROVIDERS: Emergency Provider Internal Medicine
DX: Z02.79 Encounter for issue of other medical certificate (principal)
CPT/HCPCS: 99282

== ENCOUNTER 2023-12-09 20:31 | Emergency (ER) | payer OTHER, SELFPAY ==
[2023-12-09 20:40] VITALS: BP 143/81; PULSE 73; RESP 18; TEMP 36.9; O2SAT 98; BMI 21.7
--- NOTE | 2023-12-09 20:40 | ED_ITS ---
HPI - Ear Problem General Chief complaint: Ear Problems Stated complaint: object stuck in ear Time Seen by Provider: 12/09/23 22:27 Source: patient Mode of arrival: ambulatory Limitations: no limitations History of Present Illness HPI Narrative: Patient is a 38-year-old male who presents emergency department for evaluation of right ear pain for 1 week. He felt as though his ear was clogged, but was still able to hear. He denies any head trauma or known injury. He denies any active drainage from the ear. He denies any itching sensation. Denies pain to the external ear. She has not frequent swimmer. He reports that he went to urgent care prior to arrival, they attempted irrigation of the ear, but he states ?it pushed the wax and further? and then he had decreased hearing to the left ear afterwards. He denies any additional URI symptoms. Related Data Previous Rx's ?Medication ?Instructions ?Recorded clindamycin HCl 150 mg capsule 150 mg PO Q8H 7 days #21 caps 07/25/20 clindamycin HCl 300 mg capsule 300 mg PO Q8H 7 days #21 caps 07/25/20 doxycycline monohydrate 100 mg 100 mg PO BID 10 days #20 tabs 07/25/20 tablet cyclobenzaprine 10 mg tablet 10 mg PO TID PRN muscle spasm #21 07/28/21 tabs naproxen 500 mg tablet 500 mg PO BID PRN pain 10 days #20 07/28/21 tabs prednisone 20 mg tablet 60 mg (3 x 20 mg) PO DAILY 5 days 07/28/21 #15 tabs erythromycin 5 mg/gram (0.5 %) eye 1 appl ophthalmic-Left TID 10 days 11/05/22 ointment #3.5 grams acetic acid 2 % ear solution 3 drp otic (ear) right Q6H 7 days 12/09/23 #15 mL Allergies Allergy/AdvReac Type Severity Reaction Status Date / Time No Known Allergies Allergy Verified 12/09/23 20:40 Review of Systems Review of Systems: Yes all other systems are reviewed and are negative PMFSH Past Medical History Attestation statement: The following information was validated with the patient. Source: old records reviewed Medical History Abscess of nose Patient denies significant medical history No known health problems Social History Social History Alcohol intake: current Smoked in Last 30 Days: No Use of substances other than those prescribed or required for medical reasons: No Advance Directives: No Advance Directives Information Provided: No Do you have a plan to hurt others: No Plan Physical Exam Vital Signs: Vital Signs: Last Vital Signs Temp 97.9 F 12/10/23 00:21 Pulse 78 12/10/23 00:21 Resp 16 12/10/23 00:21 BP 126/74 12/10/23 00:21 Pulse Ox 99 12/10/23 00:21 O2 Del Method Room Air 12/10/23 00:21 BMI result Body Mass Index 21.7 Appearance: Alert.?Oriented to person, place and time. No acute distress.?Normal affect. Eyes: Pupils equal, round and reactive to light.? ENT: Pharynx normal.??Right ear canal with cerumen impaction unable to visualize TM, cerumen present to the left ear canal, able to visualize TM, no evidence of AOM Neck: Normal inspection.? Neck supple.??No cervical adenopathy CVS: Heart sounds normal. Normal heart rate and rhythm.? Pulses normal.?? Respiratory: No respiratory distress.? Lung sounds clear to auscultation bilaterally??? Skin: Skin warm and dry.? Normal skin color.? Neuro: Moves all extremities spontaneously. Sensation intact bilaterally. Ambulates with normal steady gait. Course Course Course Narrative: This is a Rapid Medical Exam performed in triage by Martina Dick PA-C. Full HPI, ROS and PE to be performed by primary ED provider. 38 year-old M w/ no sig PMHx presenting to the ED c/o R ear pain x 1 wk. Admits to clogged right ear. Was seen at [facility] and states they tried irrigating ear, however feels like they made it worse PE: impacted cerumen to R ear, unable to see TM. cerumen in L ear w/o infected TM Plan: Ear irrigation Medications Administered Discontinued Medications Generic Name Dose Route Start Last Admin Trade Name Freq PRN Reason Stop Dose Admin Docusate Sodium 100 mg 12/09/23 22:27 12/09/23 22:31 Docusate Sodium 100 Mg/10 Ml Liquid PO 12/09/23 22:28 100 mg ONCE ONE Administration Procedures Ear Wax Removal Right Ear: Cerumenolytic Used: Colace Results: Re-examined: some cerumen remains and removal reattempted Ear Canal Exam: atraumatic Patient Tolerated Procedure: other (See course narrative) Complications: no problems Technique: ear canal irrigated and ear canal curetted Medical Decision Making Medical Decision Making MDM Narrative: Patient is a 38-year-old male who presents emergency department for evaluation of right ear pain and decreased hearing, and examination has cerumen impaction of the right ear canal. Despite attempt for irrigation at urgent care prior to arrival, his symptoms persist and impaction was unable to be resolved. Discussed plan of care with patient, agreeable to liquid Colace instilled into the ear as a means as cerumenolytic, will then attempt manual removal with curette and/ or irrigation. Discussed with patient or may be a component of mild otitis externa was well. Attempted removal of cerumen with curette, patient is very anxious surrounding the procedure, frequently pulling his head away. When asked whether this is provoking pain he states no but he is very anxious about it. He did allow me to attempt removal few times, ultimately was unable to alleviate impaction. I attempted irrigation warm water as well and only able to remove a small amount of cerumen. At this point I feel it reasonable that he be discharged home with use of ascetic acid over the next week and recommended outpatient follow-up with primary care provider and/or returning to urgent care for 2nd attempted irrigation after using the drops for 1 week. Discussed worrisome signs and symptoms that would warrant re-evaluation in the emergency department. Differential Diagnosis Differential Diagnoses: The differential diagnosis associated with the presentation includes (Cerumen impaction, AROM, otitis media with effusion) Prescription Management I considered prescription management with: Other (See narrative above) Discharge Plan Discharge Clinical Impression: Cerumen impaction Qualifiers: Laterality: right Qualified Code(s): H61.21 - Impacted cerumen, right ear Patient Disposition: Home, Self-Care Additional Instructions: Use 3 drops of acetic acid 2 cotton wick every 6 hours. Contact your primary care doctor to arrange for a follow-up visit, or return back to an urgent care center so that you can have the ear irrigated again if your symptoms do not improve on its own. As discussed, you may notice that lacks begins to remove from the ear with use of the drops. Prescriptions: New acetic acid 2 % solution 3 drp otic (ear) right Q6H 7 Days Qty: 15 0RF Rx Instructions: apply to (cotton) wick; replace wick every 24 hours No Action clindamycin HCl 300 mg capsule 300 mg PO Q8H 7 Days Qty: 21 0RF Rx Instructions: Clindamycin 450 mg p.o. q.8 hours for 7 days clindamycin HCl 150 mg capsule 150 mg PO Q8H 7 Days Qty: 21 0RF Rx Instructions: Clindamycin 450 mg p.o. q.8 hours for 7 days doxycycline monohydrate 100 mg tablet 100 mg PO BID 10 Days Qty: 20 0RF naproxen 500 mg tablet 500 mg PO BID PRN (Reason: pain) 10 Days Qty: 20 0RF prednisone 20 mg tablet 60 mg PO DAILY 5 Days Qty: 15 0RF cyclobenzaprine 10 mg tablet 10 mg PO TID PRN (Reason: muscle spasm) Qty: 21 0RF Rx Instructions: Side effect of drowsiness. Do Not take at work or while driving. erythromycin 5 mg/gram (0.5 %) ointment 1 appl ophthalmic-Left TID 10 Days Qty: 3.5 0RF Referrals: Physician,None [Primary Care Provider] - Interventions: ED Discharge Assessment Last Done: 12/10/23 00:21 Discharge Date/Time: 12/10/23 00:17 Print Language: Pashto
[2023-12-09 22:29] VITALS: BP 124/61; PULSE 64; RESP 18; TEMP 37; O2SAT 98
[2023-12-09] MEDS: Docusate Sodium 100 MG/10 ML LIQUID PO (22:31)
[2023-12-10 00:21] VITALS: BP 126/74; PULSE 78; RESP 16; TEMP 36.6; O2SAT 99
== END 2023-12-10 00:17 | disposition home or self-care (01) ==
PROVIDERS: Emergency Provider Internal Medicine
DX: H61.21 Impacted cerumen, right ear (principal); H92.01 Otalgia, right ear
CPT/HCPCS: 69210; 99283; 99284